=== PATIENT | female | born 1995 | race African-American/Black ===

== ENCOUNTER 2017-01-06 14:20 | Emergency (ER) | payer OTHER ==
[~2017-01-06] VITALS: Ht 160 cm; Wt 93.0 kg
[~2017-01-06 14:20] MED LIST: CARBAMAZEPINE200 M2 PO; CHLORPROMAZINE100 MG PO; EPIPEN0.3 MG/0.3 IM; PREDNISONE 20 M20 MG PO; ZANTAC 150MG T150 M1 PO
[2017-01-06] MEDS ORDERED: WELLBUTRIN XL300 MG PO (16:44)
[2017-01-06 18:19] VITALS: BP 121/66
== END 2017-01-06 18:25 | disposition home or self-care (01) ==
LOC: ER 14:20
DX: T74.21XA Adult sexual abuse, confirmed, initial encounter (principal); F20.9 Schizophrenia, unspecified; F84.0 Autistic disorder; Y07.9 Unspecified perpetrator of maltreatment and neglect